=== PATIENT | female | born 1985 | race Two or more races ===

== ENCOUNTER 2020-11-26 15:21 | Emergency (ER) | payer OTHER ==
[~2020-11-26] VITALS: Ht 154.9 cm; Wt 65.3 kg
--- NOTE | 2020-11-26 15:40 | NUR ---
FATOU WEEKS AT BEDSIDE.
[2020-11-26] MEDS ORDERED: METHOCARBAMOL 750 MG TABLET ONE (15:56)
[2020-11-26] MEDS ORDERED: KETOROLAC 30 MG/1 ML ONE (15:56)
[2020-11-26] MEDS ORDERED: KETOROLAC 30 MG/1 ML IM ONE (16:00)
[2020-11-26] MEDS ORDERED: METHOCARBAMOL 750 MG TABLET PO ONE (16:00)
--- NOTE | 2020-11-26 16:03 | NUR ---
PT MEDICATED PER EMAR. RESP EVEN AND UNLABORED, NADN. PT TAKEN TO CT.
--- NOTE | 2020-11-26 16:41 | NUR ---
pt out to imaging with tech as transporter, taken via gurney with no signs or symptoms of acute distress noted respirations even and unlabored
[2020-11-26 18:00] VITALS: BP 108/58
== END 2020-11-26 18:06 | disposition home or self-care (01) ==
LOC: ED 18:00
DX: S39.012A Strain of muscle, fascia and tendon of lower back, initial encounter (principal); S16.1XXA Strain of muscle, fascia and tendon at neck level, initial encounter; S09.90XA Unspecified injury of head, initial encounter; V49.49XA Driver injured in collision with other motor vehicles in traffic accident, initial encounter; Y93.89 Activity, other specified; Y92.488 Other paved roadways as the place of occurrence of the external cause; Y99.8 Other external cause status
CPT/HCPCS: 72072; 72110; 72125; 96372; 99284; J1885